=== PATIENT | male | born 1995 | race Hispanic/Latino ===

== ENCOUNTER 2020-03-10 23:52 | Emergency (ER) | payer SELFPAY ==
[2020-03-11 00:16] VITALS: BP 148/78
== END 2020-03-11 00:52 | disposition left against medical advice (07) ==
LOC: ED 23:52
DX: R41.82 Altered mental status, unspecified (principal); Z53.21 Procedure and treatment not carried out due to patient leaving prior to being seen by health care provider

== ENCOUNTER 2020-04-08 10:43 | Emergency (ER) | payer SELFPAY ==
--- NOTE | 2020-04-08 11:58 | Event Note ---
ED Screening Note ED Screening Note: pt presents to the ED stating he wants to go to rehab he states he wants rehab for marijuana use he denies any ETOH use he denies any other drug use he denies any SI/HI/hallucinations This initial assessment/diagnostic orders/clinical plan/treatment(s) is/are subject to change based on patients health status, clinical progression and re- assessment by fellow clinical providers in the ED. Further treatment and workup at subsequent clinical providers discretion. Patient/guardian urged not to elope from the ED as their condition may be serious if not clinically assessed and managed. Initial orders include: mental health consult
--- NOTE | 2020-04-08 18:33 | Emergency Department Report ---
<BRENDAN DAWNVicky - Last Filed: 04/08/20 23:15> ED Psych HPI - General Chief Complaint: Psych Stated Complaint: HEARING VOICES Time Seen by Provider: 04/08/20 11:54 - Related Data Allergies Allergy/AdvReac Type Severity Reaction Status Date / Time No Known Allergies Allergy Verified 04/08/20 11:09 ED Course - Reevaluation(s) Reevaluation #1: 04/08/20 23:17 Pt reported to nurse that he was having some abdominal pain. States it is in his LUQ and back area. Pt reports he has had this pain several times in the past. Patient has been afebrile. Pt denies N/V/D. Abdomen is soft, minimal tenderness in LUQ. No CVA tenderness present. GI cocktail given. Patient reports improvement. ED Medical Decision Making - Lab Data Result diagrams: 04/08/20 18:41 04/08/20 18:41 ED Disposition Clinical Impression: Suicidal ideation Disposition: DC/TX-65 PSY HOSP/PSY UNIT Condition: Stable Referrals: PRIMARY CARE, [Primary Care Provider] - 3-5 Days <VICKY WATKINS - Last Filed: 04/13/20 16:29> ED Psych HPI - General Source: patient Mode of arrival: Ambulatory - History of Present Illness Initial Comments: Patient is 25 years old male with history of schizophrenia. Patient presented to the ER stating that he is hearing voices asking him to hurt himself. Patient also stated that he is having difficulty sleeping at night and the only thing that help him sleep at night is when he smoked marijuana. Patient also admitted a visual hallucination. He denied homicidal ideation. When I asked patient about his plan he said he is always having the feeling that he would grab a knife and stabbed himself. Complaint: suicidal ideation ED Review of Systems ROS: Stated complaint: HEARING VOICES Other details as noted in HPI Comment: All other systems reviewed and negative Constitutional: denies: chills, fever Respiratory: denies: cough, shortness of breath, SOB with exertion, SOB at rest, wheezing Cardiovascular: denies: chest pain, palpitations Gastrointestinal: denies: abdominal pain, nausea, vomiting, diarrhea Genitourinary: denies: dysuria Musculoskeletal: denies: back pain ED Past Medical Hx - Past Medical History Hx Psychiatric Treatment: Yes (Bipolar Schizo) - Social History Smoking Status: Unknown if ever smoked Substance Use Type: None ED Physical Exam - General Limitations: No Limitations General appearance: alert, in no apparent distress, anxious - Head Head exam: Present: atraumatic, normocephalic, normal inspection - Eye Eye exam: Present: normal appearance, PERRL - ENT ENT exam: Present: normal exam, normal orophraynx, mucous membranes moist - Neck Neck exam: Present: normal inspection, full ROM. Absent: tenderness, meni ngismus - Respiratory Respiratory exam: Present: normal lung sounds bilaterally - Cardiovascular Cardiovascular Exam: Present: regular rate, normal rhythm, normal heart sounds - GI/Abdominal GI/Abdominal exam: Present: soft, normal bowel sounds. Absent: distended, tenderness, guarding, rebound, rigid, organomegaly, mass, bruit, pulsatile mass, hernia - Extremities Exam Extremities exam: Present: normal inspection, full ROM, normal capillary refill. Absent: pedal edema, calf tenderness - Back Exam Back exam: Present: normal inspection, full ROM. Absent: CVA tenderness (R), CVA tenderness (L) - Neurological Exam Neurological exam: Present: alert, oriented X3, CN II-XII intact, normal gait, reflexes normal - Psychiatric Psychiatric exam: Present: normal mood - Skin Skin exam: Present: warm, intact, normal color ED Course Vital Signs 04/08/20 04/08/20 04/09/20 11:13 20:12 02:41 Temperature 98.4 F 98.2 F 98.1 F Pulse Rate 99 H 79 74 Respiratory 18 16 16 Rate Blood Pressure 107/63 Blood Pressure 112/76 114/80 [Right] O2 Sat by Pulse 95 99 99 Oximetry 04/09/20 04/09/20 04/09/20 09:38 20:02 22:09 Temperature 97.9 F 97.9 F Pulse Rate 76 73 Respiratory 17 16 18 Rate Blood Pressure Blood Pressure 126/68 121/81 [Right] O2 Sat by Pulse 97 100 Oximetry 04/10/20 04/10/20 04/10/20 02:10 07:43 19:30 Temperature 97.3 F L 98.0 F Pulse Rate 72 50 L Respiratory 18 16 Rate Blood Pressure Blood Pressure 123/74 124/83 [Right] O2 Sat by Pulse 100 99 Oximetry 04/11/20 04/11/20 02:00 07:43 Temperature 99.2 F 98.3 F Pulse Rate 84 76 Respiratory 16 20 Rate Blood Pressure Blood Pressure 126/92 131/95 [Right] O2 Sat by Pulse 99 99 Oximetry ED Medical Decision Making - Lab Data Result diagrams: 04/08/20 18:41 04/08/20 18:41 - Medical Decision Making Patient is 25 years old male with history of schizophrenia. Patient presented to the ER stating that he is hearing voices asking him to hurt himself. Patient also stated that he is having difficulty sleeping at night and the only thing that help him sleep at night is when he smoked marijuana. Patient also admitted a visual hallucination. He denied homicidal ideation. When I asked patient about his plan he said he is always having the feeling that he would grab a knife and stabbed himself. Critical care attestation.: If time is entered above; I have spent that time in minutes in the direct care of this critically ill patient, excluding procedure time. ED Disposition Is pt being admited?: No
[2020-04-08 19:04] LABS: Basophils % (Auto) 0.4 % (0.0-1.8); Eosinophils # (Auto) 0.1 K/mm3 (0.0-0.4); Eosinophils % (Auto) 1.2 % (0.0-4.3); Hematocrit 45.7 % (35.5-45.6); Hemoglobin 15.6 gm/dl (11.8-15.2); Lymphocytes # (Auto) 1.7 K/mm3 (1.2-5.4); Lymphocytes % (Auto) 28.7 % (13.4-35.0); Mean Corpuscular HGB Conc 34 % (32-34); Mean Corpuscular Volume 94 fl (84-94); Monocytes # (Auto) 0.5 K/mm3 (0.0-0.8); Monocytes % (Auto) 9.1 % (0.0-7.3); Platelet Count 248 K/mm3 (140-440); Red Blood Count 4.85 M/mm3 (3.65-5.03); Red Cell Distribution Width 12.6 % (13.2-15.2)
[2020-04-08 19:28] LABS: BUN/Creatinine Ratio 13; Blood Urea Nitrogen 9 mg/dL (9-20); Calcium 9.7 mg/dL (8.4-10.2); Hemolysis Index 12
[2020-04-08 19:40] LABS: Bilirubin,Urine NEG (Negative); Blood,Urine NEG (Negative); Color,Urine Straw (Yellow); Protein,Urine <15 mg/dL mg/dL (Negative); Urobilinogen,Urine < 2.0 mg/dL (<2.0); WBC,Urine < 1.0 /HPF (0.0-6.0)
[2020-04-08 19:57] LABS: Amphetamine Screen,Urine Negative; Benzodiazepines Screen,Urine Negative; Cocaine Screen,Urine Negative; Methadone Screen,Urine Negative; Opiate Screen,Urine Negative
[2020-04-08 20:11] LABS: Cannabinoid Screen,Urine Positive
[2020-04-08] MEDS ORDERED: ALUM-MAG HYDROXIDE-SIMETHICONE 200-200-20MG/5ML ORAL LIQD 30 ML PO ONE (22:14)
[2020-04-08] MEDS ORDERED: LIDOCAINE VISCOUS 2% 15 ML ORAL LIQD PO ONE (22:15)
--- NOTE | 2020-04-09 10:55 | Consultation ---
History of Present Illness - Reason for Consult Consult date: 04/09/20 Reason for consult: hearing voices - History of Present Psychiatric Illness Fadi Thompson is a 25y/o male patient who presents to the ER with auditory hallucinations and "feelings of not being right." The patient is calm, and cooperative. He is a/o x 3. The patient says he has a history of "schizophrenia and bipolar." He says he "feels like I have no other way of functioning." He says "I feel I can't react to things the way I should." The patient says, "I keep hearing voices in my head telling me to hurt myself." He says, "but I'm not suicidal." He asks, "Is it possible to get out of this state of mind?" The patient describes his mood as "agitated and down." He denies every attempting suicide in the past. The patient could not recall any medications that he was on. He denies illicit drug use except "marijuana." He also denies ETOH recently, saying last drink was "around October." The patient says he "has not slept in days." PAST PSYCHIATRIC HISTORY Diagnoses: Bipolar and schizophrenia Suicide attempts or Self-harm behavior: Denies Prior psychiatric hospitalizations: Yes Substance Abuse history: "marijuana" Previous psychiatric medications tried: Could not recall Outpatient treatment: Yes PAST MEDICAL HISTORY: None reported Family Psychiatric History: None reported or documented SOCIAL HISTORY Marital Status: single Living Arrangements: with a friend Employment Status: Unemployed Access to guns/weapons: Denies Education: High school graduate History of Abuse: none reported Legal History: none reported REVIEW OF SYSTEMS Constitutional: Negative for weight loss ENT: Negative for stridor Respiratory: Negative for cough or hemoptysis All other systems reviewed and are negative MENTAL STATUS EXAMINATION General Appearance: Dressed appropriate Behavior: Calm and cooperative Mood: "agitated and down" Affect and affective range: Congruent with stated mood Thought Process: Goal oriented Speech: Normal tone and pace Thought Content: Suicidal Ideation: Denies SI Homicidal Ideation: Denies HI Hallucinations: Auditory, command Delusions: None elicited Insight and Judgment: Limited Memory/Cognition: Limited Assessment and Plan Bipolar Disorder, Current Episode Depressed MEDICATIONS: Start Prozac 10mg po daily Start Olanzapine 2.5mg po daily Start Trazodone 50mg po qhs Melatonin 5mg po qhs prn insomnia Risks, benefits and alternatives of medications discussed with the patient, questions answered and consent obtained from patient. PSYCHOTHERAPY: Supportive psychotherapy provided MEDICAL: Per primary team DELIRIUM PRECAUTIONS: Please re-orient patient frequently, keep lights on during the day, and minimize benzodiazepines and opiates as these medications could worsen patient's confusion. 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 Please contact with any questions and/or concerns. Medications and Allergies Allergies Allergy/AdvReac Type Severity Reaction Status Date / Time No Known Allergies Allergy Verified 04/08/20 11:09 Mental Status Exam - Vital signs Last Vital Signs Temp 97.9 F 04/09/20 09:38 Pulse 76 04/09/20 09:38 Resp 17 04/09/20 09:38 BP 126/68 04/09/20 09:38 Pulse Ox 97 04/09/20 09:38 Results Result Diagrams: 04/08/20 18:41 04/08/20 18:41 Abnormal lab results 04/08/20 04/08/20 04/08/20 Range/Units 18:41 18:41 18:41 Hgb 15.6 H (11.8-15.2) gm/dl Hct 45.7 H (35.5-45.6) % RDW 12.6 L (13.2-15.2) % [place] % (Auto) 9.1 H (0.0-7.3) % Creatinine 0.7 L (0.8-1.5) mg/dL Glucose 111 H (75-100) mg/dL Salicylates < 0.3 L (2.8-20.0) mg/dL Acetaminophen (10.0-30.0) ug/mL 04/08/20 Range/Units 18:41 Hgb (11.8-15.2) gm/dl Hct (35.5-45.6) % RDW (13.2-15.2) % [place] % (Auto) (0.0-7.3) % Creatinine (0.8-1.5) mg/dL Glucose (75-100) mg/dL Salicylates (2.8-20.0) mg/dL Acetaminophen < 5.0 L (10.0-30.0) ug/mL All other labs normal.
[2020-04-09] MEDS: FLUoxetine 10 MG TAB PO SCH (14:34)
[2020-04-09] MEDS ORDERED: ACETAMINOPHEN 325 MG TAB ONE (20:39)
[2020-04-09] MEDS ORDERED: traZODone 50 MG TAB PO SCH (22:00)
[2020-04-09] MEDS ORDERED: MELATONIN 5 MG TAB PO PRN (22:00)
[2020-04-10] MEDS: FLUoxetine 10 MG TAB PO SCH (11:00)
--- NOTE | 2020-04-10 15:19 | Progress Note ---
Subjective - Reason for Consult Consult date: 04/10/20 Reason for consult: hallucintions - Chief Complaint Chief complaint: During my interview with the patient today, he is awake. He is a/o x 3. He is calm and cooperative. The patient verbalizes feeling "stable, but numb." He denies SI/HI. He verbalizes hearing voices in his head telling him "negative things." He says "they are not telling me to kill myself, but a lot of negative stuff." He says "I also hear voices of people who are not there." The patient says "the trazodone made me feel weird. It seemed like a bad reaction." He says other than that he slept "good" and his appetite is "good." REVIEW OF SYSTEMS Constitutional: Negative for weight loss ENT: Negative for stridor Respiratory: Negative for cough or hemoptysis All other systems reviewed and are negative MENTAL STATUS EXAMINATION General Appearance: Dressed appropriate Behavior: Calm and cooperative Mood: "stable, but numb" Affect and affective range: Congruent with stated mood Thought Process: Goal oriented Speech: Normal tone and pace Thought Content: Suicidal Ideation: Denies SI Homicidal Ideation: Denies HI Hallucinations: Auditory Delusions: None elicited Insight and Judgment: Limited Memory/Cognition: Limited Assessment and Plan Bipolar Disorder, Current Episode Depressed MEDICATIONS: Increase Olanzapine 5mg po daily D/c Trazodone 50mg po qhs Risks, benefits and alternatives of medications discussed with the patient, questions answered and consent obtained from patient. PSYCHOTHERAPY: Supportive psychotherapy provided MEDICAL: Per primary team DELIRIUM PRECAUTIONS: Please re-orient patient frequently, keep lights on during the day, and minimize benzodiazepines and opiates as these medications could worsen patient's confusion. 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 Please contact with any questions and/or concerns. Mental Status Exam - Vital signs Last Vital Signs Temp 98.0 F 04/10/20 07:43 Pulse 50 L 04/10/20 07:43 Resp 18 04/10/20 02:10 BP 124/83 04/10/20 07:43 Pulse Ox 100 04/10/20 02:10
[2020-04-11 07:44] VITALS: BP 131/95
[2020-04-11] MEDS: FLUoxetine 10 MG TAB PO SCH (10:14)
== END 2020-04-11 10:35 ==
LOC: ED 10:43 → EEVIPCON 10:43 → ED 04-11 10:35
DX: F31.9 Bipolar disorder, unspecified (principal); F20.89 Other schizophrenia
CPT/HCPCS: 36415; 80048; 80307; 80320; 81001; 85025; G0480

== ENCOUNTER 2021-04-05 00:34 | Emergency (ER) | payer SELFPAY ==
[2021-04-05 01:20] LABS: Bilirubin,Urine NEG (Negative); Blood,Urine NEG (Negative); Color,Urine Yellow (Yellow); Mucus,Urine 1+ /HPF; WBC,Urine < 1.0 /HPF (0.0-6.0)
[2021-04-05 01:28] LABS: Amphetamine Screen,Urine PRESUMPTIVE NEGATIVE; Benzodiazepines Screen,Urine PRESUMPTIVE NEGATIVE; Cannabinoid Screen,Urine PRESUMPTIVE POSITIVE; Cocaine Screen,Urine PRESUMPTIVE NEGATIVE; Methadone Screen,Urine PRESUMPTIVE NEGATIVE; Opiate Screen,Urine PRESUMPTIVE NEGATIVE
[2021-04-05 01:40] LABS: Basophils # (Auto) 0.1 K/mm3 (0.0-0.1); Basophils % (Auto) 0.8 % (0.0-1.8); Eosinophils # (Auto) 0.1 K/mm3 (0.0-0.4); Eosinophils % (Auto) 1.6 % (0.0-4.3); Lymphocytes # (Auto) 3.1 K/mm3 (1.2-5.4); Mean Corpuscular HGB Conc 36 % (32-34); Mean Corpuscular Volume 92 fl (84-94); Monocytes # (Auto) 0.7 K/mm3 (0.0-0.8); Monocytes % (Auto) 11.3 % (0.0-7.3); Platelet Count 241 K/mm3 (140-440); Red Cell Distribution Width 13.6 % (13.2-15.2)
[2021-04-05 01:42] LABS: Hematocrit 38.5 % (35.5-45.6); Hemoglobin 13.9 gm/dl (11.8-15.2)
[2021-04-05 01:58] LABS: BUN/Creatinine Ratio 21; Blood Urea Nitrogen 21 mg/dL (9-20); Hemolysis Index 10
[2021-04-05] MEDS ORDERED: traZODone 50 MG TAB PO ONE (02:01)
[2021-04-05] MEDS ORDERED: ONDANSETRON 4 MG ODT TAB PO ONE (02:01)
[2021-04-05] MEDS ORDERED: ALUM-MAG HYDROXIDE-SIMETHICONE 200-200-20MG/5ML ORAL LIQD 30 ML PO ONE (02:01)
[2021-04-05] MEDS ORDERED: MELATONIN 5 MG TAB PO ONE (02:02)
--- NOTE | 2021-04-05 02:06 | Emergency Department Report ---
ED Psych HPI - General Chief Complaint: Psych Stated Complaint: CHEST PAIN/SUICIDAL/ALCOHOL Time Seen by Provider: 04/05/21 01:55 Source: patient Mode of arrival: Ambulatory - History of Present Illness Initial Comments: Chief complaint: I need detox from alcohol and drugs. HPI: This is 26-year-old male with history of bipolar disorder and schizophrenia, alcohol use and methamphetamine use who presents with suicidal ideation. He plans to stab himself in the stomach and burning with a knife. He also has stomach upset. He has nausea. He is not taking any psychiatric meds at this time. MD Complaint: suicidal ideation -: days(s) (Several days) Associated Psychiatric Symptoms: suicidal ideation History of same: Yes Quality: constant Improves With: none Worsens With: none Context: recent alcohol abuse, recent drug abuse, not taking psychiatric - Related Data Home Medications Medication Instructions Recorded Confirmed Last Taken No Known Home Medications [No 04/06/21 04/06/21 Unknown Reported Home Medications] Allergies Allergy/AdvReac Type Severity Reaction Status Date / Time No Known Allergies Allergy Verified 04/08/20 11:09 ED Review of Systems ROS: Stated complaint: CHEST PAIN/SUICIDAL/ALCOHOL Other details as noted in HPI Comment: All other systems reviewed and negative Constitutional: denies: fever, malaise Respiratory: denies: cough, shortness of breath Cardiovascular: denies: chest pain, palpitations Gastrointestinal: abdominal pain, nausea. denies: vomiting Psychiatric: suicidal thoughts ED Past Medical Hx - Past Medical History Previous Medical History?: Yes Hx Psychiatric Treatment: Yes (Bipolar Schizo) - Social History Smoking Status: Current Every Day Smoker Substance Use Type: Alcohol, Cocaine, Marijuana, Methamphetamines, Other - Medications Home Medications: Home Medications Medication Instructions Recorded Confirmed Last Taken Type No Known Home Medications [No 04/06/21 04/06/21 Unknown History Reported Home Medications] ED Physical Exam - General Limitations: No Limitations General appearance: alert, in no apparent distress - Head Head exam: Present: atraumatic, normocephalic - Eye Eye exam: Present: normal appearance - ENT ENT exam: Present: mucous membranes moist - Neck Neck exam: Present: normal inspection, full ROM - Respiratory Respiratory exam: Present: normal lung sounds bilaterally. Absent: respiratory distress, wheezes, rales, rhonchi - Cardiovascular Cardiovascular Exam: Present: regular rate, normal rhythm, normal heart sounds. Absent: systolic murmur, diastolic murmur, rubs, gallop - GI/Abdominal GI/Abdominal exam: Present: soft, normal bowel sounds. Absent: distended, tenderness, guarding, rebound - Rectal Rectal exam: Present: deferred - Extremities Exam Extremities exam: Present: normal inspection - Neurological Exam Neurological exam: Present: alert, oriented X3 - Psychiatric Psychiatric exam: Present: normal affect, normal mood - Skin Skin exam: Present: warm, dry, intact, normal color. Absent: rash ED Course Vital Signs 04/05/21 04/05/21 04/05/21 00:41 01:43 03:09 Temperature 98.4 F 98.8 F Pulse Rate 83 87 Respiratory 18 18 18 Rate Blood Pressure 140/65 Blood Pressure 114/60 [Right] O2 Sat by Pulse 98 99 98 Oximetry 04/05/21 04/05/21 04/06/21 08:13 20:00 01:00 Temperature 97.5 F L 98.6 F 98.4 F Pulse Rate 81 65 65 Respiratory 16 20 18 Rate Blood Pressure Blood Pressure 122/56 123/63 122/74 [Right] O2 Sat by Pulse 100 100 98 Oximetry 04/06/21 04/06/21 04/06/21 08:00 19:53 22:00 Temperature 96.7 F L 97.3 F L Pulse Rate 71 67 Respiratory 18 16 18 Rate Blood Pressure Blood Pressure 118/81 106/71 [Right] O2 Sat by Pulse 97 100 Oximetry ED Medical Decision Making - Lab Data Result diagrams: 04/05/21 01:28 04/05/21 01:28 Laboratory Results - last 24 hr 04/05/21 04/05/21 04/05/21 01:07 01:07 01:28 WBC RBC Hgb Hct MCV MCH MCHC RDW Plt Count Lymph % (Auto) [place] % (Auto) Eos % (Auto) Baso % (Auto) Lymph # (Auto) [place] # (Auto) Eos # (Auto) Baso # (Auto) Seg Neutrophils % Seg Neutrophils # Estimated GFR > 60 BUN/Creatinine Ratio 21 Urine Color Yellow Urine Turbidity Clear Urine pH 5.0 Ur Specific [place] 1.034 H Urine Protein 30 mg/dl Urine Glucose (UA) Neg Urine Ketones Tr Urine Blood Neg Urine Nitrite Neg Urine Bilirubin Neg Urine Urobilinogen 2.0 Ur Leukocyte Esterase Neg Urine WBC (Auto) < 1.0 Urine RBC (Auto) 2.0 Urine Mucus 1+ Urine Opiates Screen Presumptive negative Urine Methadone Screen Presumptive negative Ur Barbiturates Screen Presumptive negative Ur Phencyclidine Scrn Presumptive negative Ur Amphetamines Screen Presumptive negative U Benzodiazepines Scrn Presumptive negative Urine Cocaine Screen Presumptive negative U Marijuana (THC) Screen Presumptive positive 04/05/21 01:28 WBC 6.5 RBC 4.20 Hgb 13.9 Hct 38.5 MCV 92 MCH 33 H MCHC 36 H RDW 13.6 Plt Count 241 Lymph % (Auto) 48.0 H [place] % (Auto) 11.3 H Eos % (Auto) 1.6 Baso % (Auto) 0.8 Lymph # (Auto) 3.1 [place] # (Auto) 0.7 Eos # (Auto) 0.1 Baso # (Auto) 0.1 Seg Neutrophils % 38.3 L Seg Neutrophils # 2.5 Estimated GFR BUN/Creatinine Ratio Urine Color Urine Turbidity Urine pH Ur Specific [place] Urine Protein Urine Glucose (UA) Urine Ketones Urine Blood Urine Nitrite Urine Bilirubin Urine Urobilinogen Ur Leukocyte Esterase Urine WBC (Auto) Urine RBC (Auto) Urine Mucus Urine Opiates Screen Urine Methadone Screen Ur Barbiturates Screen Ur Phencyclidine Scrn Ur Amphetamines Screen U Benzodiazepines Scrn Urine Cocaine Screen U Marijuana (THC) Screen - Medical Decision Making Mr. David is a 26-year-old male with history of bipolar disorder and schizophrenia who presents with suicidal ideation with plan to cut himself in the head or stomach. He also admits to polysubstance abuse including cocaine marijuana and methamphetamine and alcohol. He has mild stomach upset dyspepsia due to over imbibing. Treated with Maalox. ED hold order in place Awaiting treatment recommendations by psychiatric team. CBC chemistry serum toxicology all within normal limits. Urinalysis without evidence of infection. Urine tox screen positive for marijuana. Patient is medically clear for psychiatric care. Patient transferred to [facility] Critical care attestation.: If time is entered above; I have spent that time in minutes in the direct care of this critically ill patient, excluding procedure time. ED Disposition Clinical Impression: Bipolar disorder, Schizophrenia Disposition: DC/TX-65 PSY HOSP/PSY UNIT Is pt being admited?: No Does the pt Need Aspirin: No Condition: Stable Additional Instructions: SUBSTANCE ABUSE PROGRAMS: [facility]: Location: [place], [place] [employer] Address: [address] [place] [address] [facility]: Address: [address] [place] [address] [facility]: Address: [address] [place] [address] [facility]: Address: [address] [place] [address] [facility] Address: [address] [place] [address]. Professional and Agency Contacts To help [facility] Cr[facility] (26/04) [place] Crisis Line: Suicide Prevention Line: Crisis Text Line: Text START to 363268 Emergency: 911 Outpatient COMMUNITY Behavioral Health Resources: [facility]: [facility] [address] [place], [place] [address] [place]: [facility] [address] [place] [address] Wednesday thru Wednesday - 8am - 5pm Call to schedule an assessment for mental health and substance abuse programs JOSE: [facility] Address: [address] [place], [place] Wednesday thru Wednesday- 7am-2pm [facility] Address: [address] [place], [place] [address]Wednesday thru Wednesday: 8:30AM-5PM Referrals: PRIMARY CARE, [Primary Care Provider] - 3-5 Days
--- NOTE | 2021-04-05 09:52 | Consultation ---
History of Present Illness - Reason for Consult Consult date: 04/05/21 Reason for consult: drug use - History of Present Psychiatric Illness Fadi Lima is a 26y/o male patient who presented to the ER for suicidal thoughts, per ER note. During my evaluation of the patient he is calm, and cooperative. He is polite. He's not upfront about his drug use. He tells me that he came to the hospital "because I was having withdrawals from smoking weed." He says "I think the weed was laced with something. I start feeling this way every time after I smoke it." When asking the patient why did he think it was laced with something and how was it making him feel, he replies "because I get a strong urge to keep going back at it to smoke it." He holds his hand up and puts it up to his mouth as if smoking to show me what he was talking about. The patient says "last night I thought somebody wanted to end my life." He says "I know the weed is laced with something because this happens every time." When advising the patient that he should quit smoking it, he replies "but it's that urge. It's something in it." He then says, "oh yea, I was taking shrums." The p atient denies SI/HI. He also denies hallucinations of any kind. He says he has a history of bipolar and schizophrenia, and has been noncompliant with this medications. When asking the patient about his medications, he states "I have not been taking my meds. I don't have money." I advised the patient to use some of the money used on the drugs to buy his meds, he replies "well yea, but I don't think they will work anyway." PAST PSYCHIATRIC HISTORY Diagnoses: Bipolar and schizophrenia Suicide attempts or Self-harm behavior: Denies Prior psychiatric hospitalizations: Yes Substance Abuse history: "weed and shrums" Previous psychiatric medications tried: Could not recall Outpatient treatment: Yes, but not currently PAST MEDICAL HISTORY: None reported Family Psychiatric History: None reported or documented SOCIAL HISTORY Marital Status: single Living Arrangements: with a friend Employment Status: Unemployed Access to guns/weapons: Denies Education: High school graduate History of Abuse: none reported Legal History: none reported REVIEW OF SYSTEMS Constitutional: Negative for weight loss ENT: Negative for stridor Respiratory: Negative for cough or hemoptysis All other systems reviewed and are negative MENTAL STATUS EXAMINATION General Appearance: Dressed appropriate Behavior: Calm and cooperative Mood: "better" Affect and affective range: Congruent with stated mood Thought Process: Goal oriented Speech: Normal tone and pace Thought Content: Suicidal Ideation: Denies SI at present Homicidal Ideation: Denies HI Hallucinations: Denies Delusions: None elicited Insight and Judgment: Limited Memory/Cognition: Limited Assessment and Plan Psychoactive Substance Abuse, uncomplicated MEDICATIONS: No medications at this time Risks, benefits and alternatives of medications discussed with the patient, questions answered and consent obtained from patient. PSYCHOTHERAPY: Supportive psychotherapy provided MEDICAL: Per primary team DELIRIUM PRECAUTIONS: Please re-orient patient frequently, keep lights on during the day, and minimize benzodiazepines and opiates as these medications could worsen patient's confusion. 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 The patient's condition can be managed on an outpatient basis. He understands that he is to seek immediate assistance including the crisis hotline, 911/ER. The clean up person is to further discuss and document the safety plan The patient is to abstain from all illicit drug use The clean up person is to give him resources for outpatient psych, CBT, med management, med assistance and drug rehab He is to follow up with outpatient psych in 7 to 14 days upon discharge Will sign off. Thank you for the consult. Please contact with any questions and/or concerns. Case staffed with Dr. Olson Medications and Allergies Allergies Allergy/AdvReac Type Severity Reaction Status Date / Time No Known Allergies Allergy Verified 04/08/20 11:09 Mental Status Exam - Vital signs Last Vital Signs Temp 97.5 F L 04/05/21 08:13 Pulse 81 04/05/21 08:13 Resp 16 04/05/21 08:13 BP 122/56 04/05/21 08:13 Pulse Ox 100 04/05/21 08:13 Results Result Diagrams: 04/05/21 01:28 04/05/21 01:28 Abnormal lab results 04/05/21 04/05/21 04/05/21 Range/Units 01:07 01:28 01:28 MCH (28-32) pg MCHC (32-34) % Lymph % (Auto) (13.4-35.0) % [place] % (Auto) (0.0-7.3) % Seg Neutrophils % (40.0-70.0) % BUN (9-20) mg/dL Ur Specific [place] 1.034 H (1.003-1.030) Salicylates < 0.3 L (2.8-20.0) mg/dL Acetaminophen 5.0 L (10.0-30.0) ug/mL 04/05/21 04/05/21 Range/Units 01:28 01:28 MCH 33 H (28-32) pg MCHC 36 H (32-34) % Lymph % (Auto) 48.0 H (13.4-35.0) % [place] % (Auto) 11.3 H (0.0-7.3) % Seg Neutrophils % 38.3 L (40.0-70.0) % BUN 21 H (9-20) mg/dL Ur Specific [place] (1.003-1.030) Salicylates (2.8-20.0) mg/dL Acetaminophen (10.0-30.0) ug/mL All other labs normal.
--- NOTE | 2021-04-05 11:55 | Event Note ---
Date: 04/05/21 26-year-old male with history of schizophrenia who presented with suicidal ideation. He was medically cleared by my colleague and seen by the mental health club manager/psychiatry team this morning who recommended discharge home. His vital signs have been stable. I went and spoke to the patient and he told me that he wants to end his own life. He stated he does not have a plan. He denied auditory or visual hallucinations or any physical complaints. After this conversation I spoke with the psychiatry [facility] over the telephone yareli blackmon what the patient told me. She requested a new mental health consult be placed. 1013 order was placed and appropriate paperwork was signed.
--- NOTE | 2021-04-06 10:16 | Progress Note ---
Subjective - Reason for Consult Consult date: 04/06/21 Reason for consult: SI, detox - Chief Complaint Chief complaint: The patient was seen today, he was actually cleared yesterday, but Dr. Quintero refused to discharge the patient. During my evaluation of the patient today, he is walking around, he is smiling and pleasant. When asking the patient why did he deny suicidal thoughts with me yesterday then tell the doctor something different. The patient says "oh, it switches up." He denies SI/HI at present and also denies hallucinations of any kind. He replies "I don't think I'm feeling that way but I don't want to go home because I'm worrying about the drug treatment and the withdrawals." REVIEW OF SYSTEMS Constitutional: Negative for weight loss ENT: Negative for stridor Respiratory: Negative for cough or hemoptysis All other systems reviewed and are negative MENTAL STATUS EXAMINATION General Appearance: Dressed appropriate Behavior: Calm and cooperative Mood: "okay" Affect and affective range: Congruent with stated mood Thought Process: Goal oriented Speech: Normal tone and pace Thought Content: Suicidal Ideation: Denies SI at present Homicidal Ideation: Denies HI Hallucinations: Denies Delusions: None elicited Insight and Judgment: Limited Memory/Cognition: Limited Assessment and Plan Psychoactive Substance Abuse, uncomplicated MEDICATIONS: No medications at this time Risks, benefits and alternatives of medications discussed with the patient, questions answered and consent obtained from patient. PSYCHOTHERAPY: Supportive psychotherapy provided MEDICAL: Per primary team DELIRIUM PRECAUTIONS: Please re-orient patient frequently, keep lights on during the day, and minimize benzodiazepines and opiates as these medications could worsen patient's confusion. 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 Recommend acute inpatient psychiatric hospitalization at this time based on his conversation with the doctor. Will sign off. Thank you for the consult. Please contact with any questions and/or concerns. Case staffed with Dr. Olson Mental Status Exam - Vital signs Last Vital Signs Temp 96.7 F L 04/06/21 08:00 Pulse 71 04/06/21 08:00 Resp 18 04/06/21 08:00 BP 118/81 04/06/21 08:00 Pulse Ox 97 04/06/21 08:00
[2021-04-06 20:28] VITALS: BP 106/71
== END 2021-04-07 00:01 ==
LOC: ED 00:34
DX: F31.9 Bipolar disorder, unspecified (principal); F20.9 Schizophrenia, unspecified; Z20.822 Contact with and (suspected) exposure to COVID-19; F17.200 Nicotine dependence, unspecified, uncomplicated; F12.90 Cannabis use, unspecified, uncomplicated; F14.90 Cocaine use, unspecified, uncomplicated; F15.90 Other stimulant use, unspecified, uncomplicated; Z72.89 Other problems related to lifestyle
CPT/HCPCS: 36415; 80048; 80307; 81001; 85025; 99285; U0003; 80320; G0480

== ENCOUNTER 2021-07-28 21:02 | Emergency (ER) | payer SELFPAY ==
[2021-07-28 21:10] VITALS: BP 125/77
--- NOTE | 2021-07-28 22:05 | Emergency Department Report ---
ED General Adult HPI - General Chief complaint: Medical Clearance Stated complaint: I want to go to detox PUI?: No Time Seen by Provider: 07/28/21 22:01 Source: patient (Verbal report received from emergency medical services.), EMS ( EMS documentation not available at time of chart dictation ), RN notes reviewed, old records reviewed Mode of arrival: Ambulatory Limitations: No Limitations - History of Present Illness Initial comments: The patient was evaluated in the emergency department for symptoms described in the history of present illness. He/she was evaluated in the context of the global COVID-19 pandemic, which necessitated consideration that the patient might be at risk for infection with the virus that causes COVID-19. Institutional protocols and algorithms that pertain to the evaluation of patients at risk for COVID-19 are in a state of rapid change based on information released by regulatory bodies including the CDC and federal and state organizations. These policies and algorithms were followed during the patient's care in the emergency department. Please note that these policies, procedures and recommendations changed on a rapid basis. The patient is a 26-year-old gentleman. The patient presents to the ER today with a request for detox. He states that yesterday, and frequently, he uses alc ohol, meth, cocaine, and crystal. He has not consumed any drugs today. He denies physical pain. He denies homicidality and suicidality. He denies access to guns or firearms. He endorses nonspecific hallucinations. He is also asking for transportation to go to detox. He denies urinary symptoms and Covid symptoms. Improves with: none Worsens with: none Associated Symptoms: denies other symptoms - Related Data Home Medications Medication Instructions Recorded Confirmed Last Taken No Known Home Medications [No 04/06/21 04/06/21 Unknown Reported Home Medications] Allergies Allergy/AdvReac Type Severity Reaction Status Date / Time No Known Allergies Allergy Verified 07/28/21 21:10 ED Review of Systems ROS: Stated complaint: DRUG USEAGE, HEARING VOICES Other details as noted in HPI Comment: All other systems reviewed and negative Psychiatric: denies: anxiety, depression, suicidal thoughts ED Past Medical Hx - Past Medical History Hx Psychiatric Treatment: Yes (Bipolar Schizo) - Social History Smoking Status: Current Every Day Smoker Substance Use Type: Alcohol, Cocaine, Marijuana, Methamphetamines, Other - Medications Home Medications: Home Medications Medication Instructions Recorded Confirmed Last Taken Type No Known Home Medications [No 04/06/21 04/06/21 Unknown History Reported Home Medications] ED Physical Exam - General Limitations: No Limitations General appearance: alert, in no apparent distress - Head Head exam: Present: atraumatic, normocephalic - Eye Eye exam: Present: normal appearance, EOMI. Absent: nystagmus - ENT ENT exam: Present: normal exam, normal orophraynx, mucous membranes moist, normal external ear exam - Neck Neck exam: Present: normal inspection, full ROM. Absent: tenderness, meningismus - Respiratory Respiratory exam: Present: normal lung sounds bilaterally. Absent: respiratory distress, wheezes, rales, rhonchi, stridor, decreased breath sounds - Cardiovascular Cardiovascular Exam: Present: regular rate, normal rhythm, normal heart sounds. Absent: bradycardia, tachycardia, irregular rhythm, systolic murmur, diastolic murmur, rubs, gallop - GI/Abdominal GI/Abdominal exam: Present: soft. Absent: distended, tenderness, guarding, rebound, rigid, pulsatile mass - Rectal Rectal exam: Present: deferred - Extremities Exam Extremities exam: Present: normal inspection, full ROM, other (2+ pulses noted in the bilateral upper and lower extremities. There is no palpable cord. negative Homans sign. Muscular compartments are soft. The pelvis is stable.). Absent: pedal edema, joint swelling, calf tenderness - Back Exam Back exam: Present: normal inspection, full ROM. Absent: tenderness, CVA tenderness (R), CVA tenderness (L), paraspinal tenderness, vertebral tenderness - Neurological Exam Neurological exam: Present: alert, oriented X3, normal gait, other (No facial d rc. Tongue midline. Extraocular movements intact bilaterally. Facial sensation intact to light touch in V1, V2, V3 distribution bilaterally. 5 and a 5 strength in 4 extremities. Sensation intact to light touch in 4 extremities.). Absent: motor sensory deficit - Psychiatric Psychiatric exam: Present: normal affect, normal mood. Absent: anxious, flat a ffect, manic, homicidal ideation, suicidal ideation - Skin Skin exam: Present: warm, dry, intact, normal color. Absent: rash ED Course Vital Signs 07/28/21 21:09 Temperature 98.6 F Pulse Rate 78 Respiratory 18 Rate Blood Pressure 125/77 [Left] O2 Sat by Pulse 99 Oximetry ED Medical Decision Making - Lab Data Vital Signs (72 hours) 07/28/21 21:09 Temperature 98.6 F Pulse Rate 78 Respiratory 18 Rate Blood Pressure 125/77 [Left] O2 Sat by Pulse 99 Oximetry - Medical Decision Making Differential diagnosis, including the not limited to: Encounter for behavioral health screening examination, encounter for medical screening examination, history of polysubstance abuse Assessment and plan: 26-year-old gentleman, who is clinically sober, with a GCS of 15, who is pleasant, calm and cooperative, not homicidal, not suicidal, alert and oriented to name, place and location, who was noted to be eating candy/whoppers upon arrival, who presents to the ER today with complaints of painless request for detox. This patient does not meet criteria for 1013 hold or involuntary hold. He exhibits decision-making capacity, lucid thought process, and it appears that his primary impetus for presenting to the emergency room is to acquire transportation to go to detox. Patient does not require laboratory studies at this time in my opinion, he does not require involuntary hold or 1013 hold. He does not appear to have an emergent medical or psychiatric condition present at this time. He may be discharged, he is counseled to avoid consumption of recreational drugs (patient states he does not use intravenous drugs, and his skin exam demonstrates no evidence of cutaneous injection sites or skin infection). He will be given a list of outpatient resources that he may follow-up with for detox Critical care attestation.: If time is entered above; I have spent that time in minutes in the direct care of this critically ill patient, excluding procedure time. ED Disposition Clinical Impression: Encounter for behavioral health screening, Encounter for medical screening examination Disposition: HOME / SELF CARE / HOMELESS Is pt being admited?: No Does the pt Need Aspirin: No Condition: Good Additional Instructions: We recommend that the patient not use recreational drugs. Long-term consumption of cocaine, ice, methamphetamines, alcohol, ecstasy, may lead to addiction, disability, , paralysis, and loss of quality of life. The patient was not found to have an emergency medical condition today that would preclude outpatient follow-up with a psychiatrist, and/or detox therapy. The patient may follow-up with an outpatient detox center at his leisure to pursue his request for outpatient detox therapy. We recommend follow-up with an outpatient primary care doctor within the next month. Follow-up with an outpatient mental health specialist, or detox center soon as possible to pursue your request for outpatient detox. Please return to the emergency room right away with new pain, worsened pain, migration of pain, projectile vomiting, change in mental status, confusion, inability to tolerate liquid feeds, homicidality, suicidality, overdose. Referrals: [facility] [Outside] - 3-5 Days [facility] [Outside] - 3-5 Days
== END 2021-07-28 23:20 | disposition home or self-care (01) ==
LOC: ED 21:02
DX: Z13.9 Encounter for screening, unspecified (principal); Z13.30 Encounter for screening examination for mental health and behavioral disorders, unspecified; F20.9 Schizophrenia, unspecified; F31.9 Bipolar disorder, unspecified; F17.290 Nicotine dependence, other tobacco product, uncomplicated
CPT/HCPCS: 99283